=== PATIENT | male | born 1955 | race Caucasian/White ===

== ENCOUNTER 2025-03-23 01:16 | Emergency (ER) | payer BC ==
[~2025-03-23] VITALS: Ht 167.6 cm; Wt 75.0 kg
--- NOTE | 2025-03-23 01:39 | ELECTROCARDIOGRAPH REPORT ---
[place] Test Date: 2025-03-23 Test Time: 01:37:16 Pat Name: MIKAELA CRUZ Department: [facility]- Patient ID: [facility]-[id number] Room: Gender: M Stone Hand: : 1955 Requested By: ROSANGELA PERDUE Order Number: [id number] Reading MD: Measurements Intervals [place] Rate: 55 P: 31 [place]: 179 QRS: -63 QRSD: 99 T: 37 QT: 447 QTc: 428 Interpretive Statements Sinus bradycardia Abnormal R-wave progression, late transition Inferior infarct, old Abnrm T, consider ischemia, anterolateral lds Please click the below link to view image of tracing.
[2025-03-23 02:20] VITALS: TEMP 97.7
[2025-03-23] MEDS ORDERED: TAMS-55 PO (02:21)
--- NOTE | 2025-03-23 02:21 | Physician Documentation ---
History of Present Illness ~ Chief Complaint: Abdominal Pain Stated Complaint: SWOLLEN PROSTATE Time Seen by MD: 01:50 Mode of Arrival: POV, Ambulatory HPI Patient presents to the emergency room with abdominal pain and inability urinate. Onset of symptoms over the past few hours. He states he last urinated at 6:00 p.m.. No prior instance Medication Reconciliation Allergies: Coded Allergies: No Known Allergies (Unverified , 03/23/25) Review of Systems ROS All review of systems negative except as per HPI Physical Exam Vital Signs: Temperature: 97.6, Source: Temporal, Heart Rate: 52, Respiratory Rate: 16, BP: 240/109, Pulse Oximetry: 97, Weight: 75.000 Oxygen Flow Rate: 0 Physical Exam General: Patient is awake, alert, oriented x4 in mild distress. Diaphoretic Head: Normocephalic and atraumatic. Eyes: Conjunctival normal. EOMI. PERRL. ENT: Mucous membranes moist. Neck: Supple, trachea is midline. Chest: Clear to auscultation bilaterally without rales, rhonchi, or wheezes. There is no accessory muscle use or retractions. Cardiac: RRR without murmurs, gallops, or rubs. Abd: Fullness in lower abdomen with tenderness to palpation Progress Results/Orders Results/Orders Orders - NILE JOSHI MD * (A) Munson- Protocol * Q12H@07,19 (03/23/25 02:00) Cbc/Diff (03/23/25 02:01) BMP (03/23/25 02:01) Completed Orders - NILE JOSHI MD Electrocardiogram (03/23/25 01:31) Lidocaine 2% Jelly 11ml Syr (Glydo-Lidoc (03/23/25 02:00) Vital Signs 03/23/25 03/23/25 03/23/25 03/23/25 01:19 01:45 01:59 02:03 Temp 97.2 97.6 97.6 Pulse 64 57 52 Resp 16 20 20 16 B/P (MAP) 224/113 224/108 (146) 240/109 (152) Pulse Ox 98 96 97 O2 Flow Rate 0 0 0 Medical Decision Making Findings Patient presented to the emergency room with abdominal pain as per HPI. Differentials include but are not limited to small-bowel obstruction, acute urinary retention, cauda equina, kidney failure therefore labs ordered. Patient was found to have significant urine in his bladder therefore Munson placed with complete resolution of patient's pain. Good amount of urine expressed. He is suffering from acute urinary retention. Upon further discussion with the patient is seems that he does have a weak stream which is progressing over the past several years. Labs in urinalysis is reassuring. We have place patient on Flomax and we have instructed the patient that he needs to follow up in minimum of three days with his doctor to have Munson catheter removed. Departure Disposition: HOME / SELF CARE / HOMELESS Impression: Primary Impression: Acute urinary retention Condition: Improved Discharge Instructions: Acute Urinary Retention, Male Additional Instructions: Call your doctor tomorrow to arrange for follow up for Munson catheter removal and minimum of three days Referrals: NO PRIMARY CARE PROVIDER (PCP) Prescriptions Tamsulosin Hcl* (Flomax*) 0.4 Mg Cap.sr.24h 1 CAP PO DAILY, #10 CAP Prov: NILE JOSHI MD 03/23/25 Signature Scribe Signature: No scribe Attestation: The note accurately reflects work and decisions made by me.Nile Joshi MD 03/23/25 02:21 NILE JOSHI MD Mar 23, 2025 02:21
[2025-03-23] MEDS: LidoCAINE 2% Topical Jelly 11mL syringe (UROJET) TOP ONE (02:34)
[2025-03-23] MEDS: hydrALAZINE 20mg/ml inj. IV ONE (03:11)
[2025-03-23 03:29] LABS: MEAN PLATELET VOLUME 7.0 FL (7.4-10.4); RED CELL DISTRIBUTION WIDTH 14.0 % (11.5-14.5)
[2025-03-23 03:36] LABS: CREATININE 0.84 MG/DL (0.60-1.10); TOTAL CARBON DIOXIDE 27.5 MMOL/L (24-32); eCRCL 74 ML/MIN; eGFR 90 ML/MIN
[2025-03-23 04:16] VITALS: BP 143/87; PULSE 84; RESP 16; O2SAT 97
== END 2025-03-23 04:19 | disposition home or self-care (01) ==
LOC: ER 01:17
DX: R33.9 Retention of urine, unspecified (principal)
CPT/HCPCS: 36415; 51702; 80048; 85025; 93005; 96374; 99285; J0360; A4314